=== PATIENT | female | born 1930 | race Caucasian/White ===

== ENCOUNTER 2016-10-28 14:49 | Observation (INO) | payer MEDICARE, BC ==
[~2016-10-28] VITALS: Ht 163.8 cm; Wt 79.8 kg
[~2016-10-28 14:49] MED LIST: ALPRAZOLAM0.5 MG PO; AMLODIPINE10 MG PO; ARICEPT 5MG PO; ASPIRIN E.C. 8181 MG PO; ATARAX 25MG25 MG/TAB; ATARAX 25MG25 MG/TAB PO; BACTRIM DS 8001 TAB PO; BYSTOLIC10 MG PO; CALCIUM 600MG+D1 TAB PO; CALCIUM500 MG PO; CALCIUM600 M1 PO; CELEXA 20MG20 MG/TAB PO; CITRACAL + D CA1 TAB; COLACE 100100 MG/CAP PO; COZAAR 50MG50 MG/TAB PO; CYMBALTA 60MG60 MG PO; DIOVAN320 MG PO; DULCOLAX TAB5 MG PO; EYE PROMISE; FISH OIL1000 MG PO; FLEXERIL 1010 MG/TAB PO; FLUOXETINE10 M1 PO; FOSAMAX 70MG TA70 MG PO; IMDUR 30MG30 MG/TAB PO; LEVOTHYROXIN0.075 MG PO; MACROBID 1100 MG/CAP PO; MELAT3MGTAB PO; MELATONIN5 M1 PO; MELATONIN5 MG; METOPROLOL25 MG PO; MIRALAX PA17 GM/Dose PO; MIRTAZAPINE7.5 MG PO; NAMENDA 10MG TA10 MG PO; NAMENDA5 MG PO; NEURONTIN100 MG/CAP PO; NORVASC 10MG10 MG PO; NORVASC 5MG5 MG/TAB PO; NORVASC2.5 MG PO; PATADAY 2.5 ML2.5 ML OU; PRILOSEC 20MG20 MG PO; REMERON 15M15 MG/TA1 PO; REQUIP 1MG T1 MG/TAB PO; SENNA1 TAB PO; SIMVASTATIN20 MG PO; SYNTHROID0.075 MG/T PO; SYNTHROID0.088 MG/T PO; TOPROL XL 25MG25 MG PO; TOPROL XL 50MG50 MG PO; TRILIPIX45 MG PO; ULTRAM 50MG TAB50 MG PO; VASOTEC 5MG5 MG/TAB PO; XANAX .25M0.25 MG/TA PO; XANAX 0.5MG0.5 MG PO; XANAX1 MG PO; ZOCOR 20MG20 MG PO; ZOLPIDEM10 MG PO
[2016-10-28] MEDS ORDERED: TESSALON P100 MG/CAP PO ×2 (15:29→20:36)
[2016-10-28] MEDS ORDERED: BREO IH ×2 (15:30→20:38)
[2016-10-28] MEDS ORDERED: CATAPRES-TTS 10.1 M1 TD (15:31)
[2016-10-28] MEDS ORDERED: DOXYCYCLINE 50M50 MG PO (15:31)
[2016-10-28] MEDS ORDERED: PROAIR HFA0.09 MG/AC IH (15:33)
[2016-10-28] MEDS ORDERED: PREDNISONE10 MG PO (15:33)
[2016-10-28 16:06] LABS: BASO % 0.1 % (0.0-2.0); EOS % 0.2 % (0-4.0); GRAN # 6.4 (1.4-6.5); GRAN % 71.1 % (42.2-75.2); LYMPH # 1.6 (1.2-3.4); LYMPH % 17.4 % (20.0-51.0); MEAN CELL VOLUME 80 fl (80.0-100.0); MEAN CORPUSCULAR HGB CONC 33 g/dl (33.0-37.0); MEAN PLATELET VOLUME 10.8 fl (7.4-10.4); MONO # 0.8 (0.1-0.6); MONO % 9.2 % (1.7-9.3); PLATELET COUNT 216 K/mm3 (130-400); RED BLOOD COUNT 4.41 M/mm3 (4.10-5.30); REDCELL DISTRIBUTION WIDTH-CV 14.4 % (11.5-14.5)
[2016-10-28 16:07] LABS: HEMATOCRIT 35.3 % (37.0-47.0); HEMOGLOBIN 11.8 g/dl (12.5-16.0); MEAN CORPUSCULAR HEMOGLOBIN 27 pg (27.0-31.0)
[2016-10-28 16:12] LABS: PROTHROMBIN TIME 11.5 SECONDS (9.7-12.8)
[2016-10-28 16:15] LABS: PARTIAL THROMBOPLASTIN TIME 27.6 SECONDS (26.0-37.0)
[2016-10-28 16:21] LABS: ADJUSTED CALCIUM 9.4 mg/dL (8.4-10.2); ALANINE AMINOTRANSFERASE 34 U/L (9-52); ALBUMIN 3.9 gm/dL (3.5-5.0); ALKALINE PHOSPHATASE 45 U/L (50-136); ANION GAP 10 mmol/L (7-16); BILIRUBIN,TOTAL 0.6 mg/dL (0.0-1.0); BLOOD UREA NITROGEN 33 mg/dL (7-17); CALCIUM 9.3 mg/dL (8.4-10.2); CARBON DIOXIDE 25 mmol/L (22-30); CHLORIDE 97 mmol/L (98-107); CREATININE, serum 1.32 mg/dL (0.52-1.25); GLUCOSE 111 mg/dL (74-106); SODIUM 132 mmol/L (137-145)
[2016-10-28 16:33] LABS: B-TYPE NATRIURETIC PEPTIDE 288 pg/mL (0-450); TROPONIN-I < 0.012 ng/mL (0.000-0.034)
[2016-10-28 16:37] LABS: INFLUENZA B NEGATIVE
[2016-10-28 19:50] VITALS: BP 134/59; PULSE 67; TEMP 97.6
[2016-10-28] MEDS ORDERED: IMDUR 60MG60 MG/TAB PO (19:56)
[2016-10-28] MEDS ORDERED: PRIL40 PO (19:58)
[2016-10-28] MEDS ORDERED: ATARAX 25MG25 MG/TAB PO (20:24)
[2016-10-28] MEDS ORDERED: NITROSTAT0.4 MG/TAB SL (20:36)
[2016-10-28] MEDS ORDERED: CEPACOL SORE TH1 LO8 MM (21:49)
[2016-10-29 00:57] VITALS: BP 134/64; PULSE 70; TEMP 98.6
[2016-10-29 04:46] VITALS: BP 160/89; PULSE 86; TEMP 98.1
[2016-10-29 06:19] LABS: PH 7 (5-8); SQUAMOUS EPITHELIAL 0-2 /hpf; URINE APPEARANCE Clear; URINE BACTERIA None Seen /hpf; URINE BILIRUBIN Negative (NEGATIVE); URINE BLOOD Negative (NEGATIVE); URINE COLOR Straw; URINE GLUCOSE Negative (NEGATIVE); URINE KETONE Negative (NEGATIVE); URINE RBC 0-2 /hpf; URINE UROBILINOGEN Negative (NEGATIVE); URINE WBC 0-2 /hpf
[2016-10-29 07:05] LABS: MEAN CELL VOLUME 82 fl (80.0-100.0); MEAN CORPUSCULAR HGB CONC 32 g/dl (33.0-37.0); MEAN PLATELET VOLUME 11.6 fl (7.4-10.4); PLATELET COUNT 220 K/mm3 (130-400); RED BLOOD COUNT 4.43 M/mm3 (4.10-5.30); REDCELL DISTRIBUTION WIDTH-CV 14.6 % (11.5-14.5); WHITE BLOOD COUNT 9.6 K/mm3 (4.8-10.8)
[2016-10-29 07:22] LABS: CALCIUM 8.7 mg/dL (8.4-10.2); CREATININE, serum 1.22 mg/dL (0.52-1.25); POTASSIUM 4.1 mmol/L (3.4-5.0)
[2016-10-29 07:30] LABS: ADD PATHOLOGY DIFF REVIEW NO; HEMATOCRIT 36.3 % (37.0-47.0); HEMOGLOBIN 11.7 g/dl (12.5-16.0); MEAN CORPUSCULAR HEMOGLOBIN 26 pg (27.0-31.0)
[2016-10-29 07:55] VITALS: BP 160/90; PULSE 87; TEMP 98.4
[2016-10-29 08:17] LABS: BAND 7 % (0-10); METAMYELOCYTE 1 % (0-0); NEUTROPHILS 64 % (42.0-75.2); PLATELET ESTIMATE NORMAL (NORMAL); TOTAL CELLS COUNTED 100
[2016-10-29 11:44] VITALS: BP 156/71; PULSE 76
[2016-10-29 15:25] VITALS: BP 162/59; PULSE 76; TEMP 98.8
[2016-10-29 19:47] VITALS: BP 153/68; PULSE 74; TEMP 97.7
[2016-10-30] VITALS (11 sets, daily range): BP systolic 139–189; BP diastolic 67–97; PULSE 63–81; TEMP 97.7–98.3
[2016-10-30] MEDS ORDERED: PREDNISONE20 MG PO (17:56)
== END 2016-10-30 19:35 | disposition home or self-care (01) ==
LOC: COL.ER 14:49 → MEDICAL 17:53
PROVIDERS: Emergency Medicine; Nurse Practitioner Family
DX: R05 Cough (principal); R09.89 Other specified symptoms and signs involving the circulatory and respiratory systems; R06.02 Shortness of breath; R53.83 Other fatigue; I10 Essential (primary) hypertension; E78.5 Hyperlipidemia, unspecified; D64.9 Anemia, unspecified; E03.9 Hypothyroidism, unspecified; Z95.0 Presence of cardiac pacemaker; F41.9 Anxiety disorder, unspecified; J45.909 Unspecified asthma, uncomplicated
CPT/HCPCS: A9502; G0378; G8978-GP; G8979-GP; J0456; J0696; J1644; J2785; J7030; J7050

== ENCOUNTER 2016-11-14 21:54 | Emergency (ER) | payer MEDICARE, BC ==
[~2016-11-14] VITALS: Ht 162.6 cm; Wt 79.5 kg
[~2016-11-14 21:54] MED LIST changes: +BREO IH; +CATAPRES-TTS 10.1 M1 TD; +CEPACOL SORE TH1 LO8 MM; +DOXYCYCLINE 50M50 MG PO; +IMDUR 60MG60 MG/TAB PO; +NITROSTAT0.4 MG/TAB SL; +PREDNISONE10 MG PO; +PREDNISONE20 MG PO; +PRIL40 PO; +PROAIR HFA0.09 MG/AC IH; +TESSALON P100 MG/CAP PO
[2016-11-14 21:59] VITALS: TEMP 97.5
[2016-11-14 23:14] LABS: BASO % 0.2 % (0.0-2.0); EOS # 0.1 (0.0-0.7); EOS % 1.5 % (0-4.0); GRAN # 3.4 (1.4-6.5); GRAN % 64.9 % (42.2-75.2); LYMPH # 1.2 (1.2-3.4); LYMPH % 22.6 % (20.0-51.0); MEAN CELL VOLUME 83 fl (80.0-100.0); MEAN CORPUSCULAR HGB CONC 33 g/dl (33.0-37.0); MEAN PLATELET VOLUME 11.1 fl (7.4-10.4); MONO # 0.6 (0.1-0.6); MONO % 10.4 % (1.7-9.3); PLATELET COUNT 126 K/mm3 (130-400); RED BLOOD COUNT 3.86 M/mm3 (4.10-5.30); WHITE BLOOD COUNT 5.3 K/mm3 (4.8-10.8)
[2016-11-14 23:15] LABS: HEMATOCRIT 32.2 % (37.0-47.0); HEMOGLOBIN 10.5 g/dl (12.5-16.0); MEAN CORPUSCULAR HEMOGLOBIN 27 pg (27.0-31.0)
[2016-11-14 23:23] LABS: ADJUSTED CALCIUM 9.2 mg/dL (8.4-10.2); ALBUMIN 3.4 gm/dL (3.5-5.0); BILIRUBIN,TOTAL 0.6 mg/dL (0.0-1.0); CALCIUM 8.7 mg/dL (8.4-10.2); CREATININE, serum 1.34 mg/dL (0.52-1.25); POTASSIUM 4.2 mmol/L (3.4-5.0); TOTAL PROTEIN 6.1 gm/dL (6.4-8.2)
[2016-11-15] LABS: PH 5 (5-8); SQUAMOUS EPITHELIAL 0-2 /hpf; URINE APPEARANCE Clear; URINE BACTERIA None Seen /hpf; URINE BILIRUBIN Negative (NEGATIVE); URINE BLOOD Negative (NEGATIVE); URINE COLOR Yellow; URINE GLUCOSE Negative (NEGATIVE); URINE KETONE Negative (NEGATIVE); URINE RBC 0-2 /hpf; URINE UROBILINOGEN Negative (NEGATIVE)
[2016-11-15] MEDS ORDERED: MACROBID 1100 MG/CAP PO (00:32)
[2016-11-15 01:05] VITALS: BP 132/66; PULSE 62
== END 2016-11-15 01:05 | disposition home or self-care (01) ==
LOC: COL.ER 21:54
PROVIDERS: Emergency Medicine
DX: E86.0 Dehydration (principal); D64.9 Anemia, unspecified; N39.0 Urinary tract infection, site not specified; I10 Essential (primary) hypertension; F03.90 Unspecified dementia, unspecified severity, without behavioral disturbance, psychotic disturbance, mood disturbance, and anxiety; Z95.0 Presence of cardiac pacemaker
CPT/HCPCS: J3420; J7040

== ENCOUNTER 2017-01-13 13:30 | Outpatient (RCR) | payer MEDICARE, BC | END 2017-01-24 10:25 | disposition home or self-care (01) | LOC: WSPT 13:30 | DX: R26.89 Other abnormalities of gait and mobility (principal); W19.XXXD Unspecified fall, subsequent encounter | CPT/HCPCS: G8978-GP; G8979-GP; G8980-GP ==

== ENCOUNTER 2017-04-26 01:56 | Emergency (ER) | payer MEDICARE, BC ==
[~2017-04-26] VITALS: Ht 162.6 cm; Wt 81.8 kg
[2017-04-26 02:05] VITALS: TEMP 97.8
[2017-04-26] MEDS ORDERED: NORCO 325 MG-51 TAB PO (03:11)
[2017-04-26 03:29] VITALS: BP 184/99; PULSE 64
== END 2017-04-26 03:49 | disposition home or self-care (01) ==
LOC: COL.ER 01:56
DX: S42.252A Displaced fracture of greater tuberosity of left humerus, initial encounter for closed fracture (principal); S80.01XA Contusion of right knee, initial encounter; I10 Essential (primary) hypertension; Z79.82 Long term (current) use of aspirin; W01.0XXA Fall on same level from slipping, tripping and stumbling without subsequent striking against object, initial encounter; Y92.009 Unspecified place in unspecified non-institutional (private) residence as the place of occurrence of the external cause

== ENCOUNTER 2017-05-29 02:27 | Observation (INO) | payer MEDICARE, BC ==
[2017-05-29] VITALS (296 sets, daily range): BP systolic 135–179; BP diastolic 65–87; PULSE 58–95; TEMP 97.8–98.7; O2SAT 89–97
[~2017-05-29] VITALS: Ht 160 cm; Wt 84.0 kg
[~2017-05-29 02:27] MED LIST changes: +NORCO 325 MG-51 TAB PO
[2017-05-29] MEDS ORDERED: VITAMIN D31000 I1 PO (03:18)
[2017-05-29] MEDS ORDERED: TIROSINT88 MC1 PO (03:20)
[2017-05-29 03:21] LABS: BASO % 0.5 % (0.0-2.0); EOS # 0.1 (0.0-0.7); EOS % 1.7 % (0-4.0); GRAN % 66.5 % (42.2-75.2); LYMPH # 1.3 (1.2-3.4); LYMPH % 21.6 % (20.0-51.0); MEAN CELL VOLUME 87 fl (80.0-100.0); MEAN CORPUSCULAR HGB CONC 32 g/dl (33.0-37.0); MEAN PLATELET VOLUME 10.5 fl (7.4-10.4); MONO # 0.6 (0.1-0.6); MONO % 9.2 % (1.7-9.3); PLATELET COUNT 210 K/mm3 (130-400); RED BLOOD COUNT 4.14 M/mm3 (4.10-5.30); REDCELL DISTRIBUTION WIDTH-CV 14.6 % (11.5-14.5)
[2017-05-29 03:23] LABS: HEMOGLOBIN 11.6 g/dl (12.5-16.0); MEAN CORPUSCULAR HEMOGLOBIN 28 pg (27.0-31.0)
[2017-05-29] MEDS ORDERED: REGLAN 5MG T5 MG/TAB PO (03:24)
[2017-05-29 03:27] LABS: PARTIAL THROMBOPLASTIN TIME 31.5 SECONDS (26.0-37.0)
[2017-05-29 03:30] LABS: ADJUSTED CALCIUM 9.1 mg/dL (8.4-10.2); ALANINE AMINOTRANSFERASE 18 U/L (9-52); ALBUMIN 4.2 gm/dL (3.5-5.0); ALKALINE PHOSPHATASE 75 U/L (50-136); ANION GAP 11 mmol/L (7-16); BILIRUBIN,TOTAL 0.6 mg/dL (0.0-1.0); BLOOD UREA NITROGEN 20 mg/dL (7-17); CALCIUM 9.3 mg/dL (8.4-10.2); CARBON DIOXIDE 26 mmol/L (22-30); CHLORIDE 95 mmol/L (98-107); CREATININE, serum 0.98 mg/dL (0.52-1.25); GLUCOSE 121 mg/dL (74-106); LIPASE 139 U/L (23-300); SODIUM 132 mmol/L (137-145); TOTAL PROTEIN 7.4 gm/dL (6.4-8.2)
[2017-05-29 03:42] LABS: B-TYPE NATRIURETIC PEPTIDE 343 pg/mL (0-450); TROPONIN-I < 0.012 ng/mL (0.000-0.034)
[2017-05-29] MEDS ORDERED: ASPIRIN 32325 MG/TAB PO (06:48)
[2017-05-29 07:33] LABS: CHOLESTEROL 150 mg/dL (120-200); HDL CHOLESTEROL 55 mg/dL; LDL CHOLESTEROL 76 mg/dL; MAGNESIUM 1.8 mg/dL (1.6-2.3); TRIGLYCERIDE 95 mg/dL
[2017-05-29 07:46] LABS: TROPONIN-I < 0.012 ng/mL (0.000-0.034)
[2017-05-29 09:04] LABS: PH 6 (5-8); SQUAMOUS EPITHELIAL 0-2 /hpf; URINE APPEARANCE Clear; URINE BACTERIA None Seen /hpf; URINE BILIRUBIN Negative (NEGATIVE); URINE BLOOD Negative (NEGATIVE); URINE COLOR Yellow; URINE GLUCOSE Negative (NEGATIVE); URINE KETONE Negative (NEGATIVE); URINE RBC 0-2 /hpf; URINE UROBILINOGEN Negative (NEGATIVE); URINE WBC 0-2 /hpf
[2017-05-30] VITALS (8 sets, daily range): BP systolic 130–165; BP diastolic 67–81; PULSE 59–61; TEMP 97.7–98.1
[2017-05-30] MEDS ORDERED: NORVASC 10MG10 MG PO (08:18)
== END 2017-05-30 13:18 | disposition home or self-care (01) ==
LOC: COL.ER 02:27 → ICU 04:17 → MEDICAL 17:09
PROVIDERS: Emergency Medicine; Nurse Practitioner Family
DX: I25.110 Atherosclerotic heart disease of native coronary artery with unstable angina pectoris (principal); E03.9 Hypothyroidism, unspecified; F03.90 Unspecified dementia, unspecified severity, without behavioral disturbance, psychotic disturbance, mood disturbance, and anxiety; F32.9 Major depressive disorder, single episode, unspecified; F41.9 Anxiety disorder, unspecified; J45.909 Unspecified asthma, uncomplicated; I12.9 Hypertensive chronic kidney disease with stage 1 through stage 4 chronic kidney disease, or unspecified chronic kidney disease; N18.9 Chronic kidney disease, unspecified; K21.9 Gastro-esophageal reflux disease without esophagitis; M19.90 Unspecified osteoarthritis, unspecified site; M81.0 Age-related osteoporosis without current pathological fracture; E78.5 Hyperlipidemia, unspecified; E87.1 Hypo-osmolality and hyponatremia; D64.9 Anemia, unspecified; Z87.891 Personal history of nicotine dependence; Z85.828 Personal history of other malignant neoplasm of skin; Z86.73 Personal history of transient ischemic attack (TIA), and cerebral infarction without residual deficits; Z95.0 Presence of cardiac pacemaker
CPT/HCPCS: 99239; A9284; C1760; C1894; G0378; J1644; J2250; J3010; J7030; Q9967

== ENCOUNTER → 2017-09-05 | Outpatient (REF) ==
[~2017-09-05] MED LIST changes: +ASPIRIN 32325 MG/TAB PO; +ASPIRIN 81M81 MG/TA2 PO; +BETAPACE 80MG80 MG PO; +COZAAR100 MG PO; +DOXYCYCLINE HY100 MG PO; +FLONASE NASAL S16 GM NS; +FLONASEALLERGY NS; +HEPARIN SOD5000 U/ML SQ; -IMDUR 60MG60 MG/TAB PO; +IPRATROPIUM BROM3 M1 IH; +ISOSORBIDE MON120 MG PO; +LASIX 20MG TABL20 MG PO; +LEADER CLE17 GM/Dose PO; +LEVAQUIN 750MG750 M1 PO; +LOPRESSOR 550 MG/TAB PO; +MELATIN 3 MG-11 TAB PO; +MUCINEX1200 MG PO; +REGLAN 5MG T5 MG/TAB PO; -REQUIP 1MG T1 MG/TAB PO; +REQUIP2 MG PO; +TIROSINT100 MC1 PO; +TYLENOL 325MG325 MG PO; +VITAMIN D 1001000 IU PO; +VITAMIN D31000 I1 PO; +ZYRTEC5 MG PO
[2017-09-05 09:42] LABS: CALCIUM 9.8 mg/dL (8.4-10.2); CREATININE, serum 1.25 mg/dL (0.52-1.25)
== END ==
LOC: ZCOL.LAB 08:25
PROVIDERS: Internal Medicine
DX: E87.1 Hypo-osmolality and hyponatremia (principal)

== ENCOUNTER → 2017-09-07 | Outpatient (REF) ==
[2017-09-07 12:49] LABS: CALCIUM 9.5 mg/dL (8.4-10.2); CREATININE, serum 1.17 mg/dL (0.52-1.25); POTASSIUM 4.6 mmol/L (3.4-5.0)
== END ==
LOC: ZCOL.LAB 12:33
PROVIDERS: Internal Medicine
DX: R39.15 Urgency of urination (principal)

== ENCOUNTER 2017-11-23 17:36 | Inpatient (IN) | payer MEDICARE, BC ==
[~2017-11-23] VITALS: Ht 160 cm; Wt 69.3 kg
[2017-11-23 19:07] LABS: MEAN CELL VOLUME 85 fl (80.0-100.0); MEAN CORPUSCULAR HGB CONC 33 g/dl (33.0-37.0); MEAN PLATELET VOLUME 10.7 fl (7.4-10.4); PLATELET COUNT 350 K/mm3 (130-400); RED BLOOD COUNT 3.55 M/mm3 (4.10-5.30); REDCELL DISTRIBUTION WIDTH-CV 14.8 % (11.5-14.5)
[2017-11-23 19:11] LABS: HEMOGLOBIN 9.9 g/dl (12.5-16.0); MEAN CORPUSCULAR HEMOGLOBIN 28 pg (27.0-31.0)
[2017-11-23] MEDS ORDERED: ASPIRIN 81M81 MG/TA2 PO (19:22)
[2017-11-23] MEDS ORDERED: TOPROL XL 25MG25 MG PO (19:24)
[2017-11-23 19:25] LABS: ALANINE AMINOTRANSFERASE 57 U/L (9-52); ALBUMIN 3.4 gm/dL (3.5-5.0); ALKALINE PHOSPHATASE 70 U/L (50-136); ANION GAP 7 mmol/L (7-16); AST,SGOT 71 U/L (15-37); BILIRUBIN,TOTAL 0.3 mg/dL (0.0-1.0); BLOOD UREA NITROGEN 16 mg/dL (7-17); CARBON DIOXIDE 22 mmol/L (22-30); CHLORIDE 101 mmol/L (98-107); CREATININE, serum 0.91 mg/dL (0.52-1.25); GLUCOSE 210 mg/dL (74-106); SODIUM 131 mmol/L (137-145)
[2017-11-23] MEDS ORDERED: MIRTAZAPINE7.5 MG PO (19:25)
[2017-11-23] MEDS ORDERED: ZOFRAN 4MG T4 MG/TAB PO (19:29)
[2017-11-23] MEDS ORDERED: CATAPRES-TTS 10.1 M1 TD (19:29)
[2017-11-23 19:37] LABS: COLLECTION METHOD CLEAN CATCH
[2017-11-23 19:38] LABS: TROPONIN-I < 0.012 ng/mL (0.000-0.034)
[2017-11-23 19:41] LABS: BAND 10 % (0-10); LYMPHOCYTE 12 % (20.0-51.0); NEUTROPHILS 74 % (42.0-75.2); PLATELET ESTIMATE NORMAL (NORMAL)
[2017-11-23 19:45] LABS: PH 6 (5-8); SQUAMOUS EPITHELIAL None Seen /hpf; URINE APPEARANCE Clear; URINE BACTERIA None Seen /hpf; URINE BILIRUBIN Negative (NEGATIVE); URINE BLOOD Negative (NEGATIVE); URINE COLOR Yellow; URINE GLUCOSE Negative (NEGATIVE); URINE KETONE Negative (NEGATIVE); URINE LEUKOCYTE ESTERASE Negative (NEGATIVE); URINE NITRATE Negative (NEGATIVE); URINE PROTEIN(semi-quant) Negative (NEGATIVE); URINE RBC None Seen /hpf; URINE UROBILINOGEN Negative (NEGATIVE)
[2017-11-23 22:09] VITALS: BP 140/58; PULSE 65; TEMP 98.6
[2017-11-23 22:11] VITALS: BP 140/58; PULSE 68; TEMP 98.6
[2017-11-24 04:35] VITALS: BP 168/86; PULSE 74; TEMP 97.7
[2017-11-24 07:42] LABS: BASO % 0.1 % (0.0-2.0); EOS % 0.1 % (0-4.0); GRAN % 78.7 % (42.2-75.2); LYMPH # 1.3 (1.2-3.4); LYMPH % 11.1 % (20.0-51.0); MEAN CELL VOLUME 86 fl (80.0-100.0); MEAN CORPUSCULAR HGB CONC 32 g/dl (33.0-37.0); MEAN PLATELET VOLUME 10.8 fl (7.4-10.4); PLATELET COUNT 356 K/mm3 (130-400); RED BLOOD COUNT 3.44 M/mm3 (4.10-5.30); REDCELL DISTRIBUTION WIDTH-CV 14.8 % (11.5-14.5)
[2017-11-24 07:43] LABS: HEMATOCRIT 29.4 % (37.0-47.0); HEMOGLOBIN 9.3 g/dl (12.5-16.0); MEAN CORPUSCULAR HEMOGLOBIN 27 pg (27.0-31.0)
[2017-11-24 07:54] VITALS: BP 140/64; PULSE 61; TEMP 98.1
[2017-11-24 07:54] LABS: ALBUMIN 3.3 gm/dL (3.5-5.0); BILIRUBIN,TOTAL 0.2 mg/dL (0.0-1.0); CALCIUM 8.9 mg/dL (8.4-10.2); CREATININE, serum 0.79 mg/dL (0.52-1.25); POTASSIUM 4.2 mmol/L (3.4-5.0); TOTAL PROTEIN 6.7 gm/dL (6.4-8.2)
[2017-11-24 12:18] VITALS: BP 135/45; PULSE 65; TEMP 99.1
[2017-11-24 16:43] VITALS: BP 150/60; PULSE 63; TEMP 99.6
[2017-11-24 21:00] VITALS: BP 150/77; PULSE 66; TEMP 98.4
[2017-11-24 23:25] VITALS: BP 150/79; PULSE 64; TEMP 99.4
[2017-11-25 03:00] VITALS: BP 168/59; PULSE 68; TEMP 100.8
[2017-11-25 07:08] LABS: ALBUMIN 3.2 gm/dL (3.5-5.0); BASO % 0.1 % (0.0-2.0); BILIRUBIN,TOTAL 0.3 mg/dL (0.0-1.0); CALCIUM 8.9 mg/dL (8.4-10.2); CREATININE, serum 0.82 mg/dL (0.52-1.25); EOS % 0.3 % (0-4.0); GRAN # 7.5 (1.4-6.5); GRAN % 74.8 % (42.2-75.2); LYMPH # 1.3 (1.2-3.4); LYMPH % 13.1 % (20.0-51.0); MEAN CELL VOLUME 85 fl (80.0-100.0); MEAN CORPUSCULAR HGB CONC 32 g/dl (33.0-37.0); MEAN PLATELET VOLUME 10.7 fl (7.4-10.4); MONO % 10.3 % (1.7-9.3); PLATELET COUNT 292 K/mm3 (130-400); POTASSIUM 3.1 mmol/L (3.4-5.0); RED BLOOD COUNT 3.44 M/mm3 (4.10-5.30); TOTAL PROTEIN 6.5 gm/dL (6.4-8.2)
[2017-11-25 07:20] LABS: HEMOGLOBIN 9.4 g/dl (12.5-16.0); MEAN CORPUSCULAR HEMOGLOBIN 27 pg (27.0-31.0)
[2017-11-25 07:21] LABS: HEMATOCRIT 29.3 % (37.0-47.0)
[2017-11-25 07:30] VITALS: BP 146/66; PULSE 60; TEMP 98.4
[2017-11-25 11:49] VITALS: BP 149/73; PULSE 61; TEMP 97.7
[2017-11-25 16:55] VITALS: BP 132/51; PULSE 66; TEMP 98.4
[2017-11-25 20:25] VITALS: BP 127/53; PULSE 62; TEMP 98.2
[2017-11-25 23:24] VITALS: BP 176/78; PULSE 65; TEMP 98.8
[2017-11-26] VITALS (7 sets, daily range): BP systolic 121–169; BP diastolic 58–68; PULSE 66–82; TEMP 97.2–99.5
[2017-11-26 06:48] LABS: MEAN CELL VOLUME 84 fl (80.0-100.0); MEAN CORPUSCULAR HGB CONC 33 g/dl (33.0-37.0); MEAN PLATELET VOLUME 10.5 fl (7.4-10.4); PLATELET COUNT 307 K/mm3 (130-400); RED BLOOD COUNT 3.45 M/mm3 (4.10-5.30); REDCELL DISTRIBUTION WIDTH-CV 14.8 % (11.5-14.5)
[2017-11-26 06:52] LABS: HEMOGLOBIN 9.5 g/dl (12.5-16.0); MEAN CORPUSCULAR HEMOGLOBIN 28 pg (27.0-31.0)
[2017-11-26 07:30] LABS: CALCIUM 8.7 mg/dL (8.4-10.2); CREATININE, serum 0.79 mg/dL (0.52-1.25); POTASSIUM 4.2 mmol/L (3.4-5.0)
[2017-11-26 09:17] LABS: BAND 2 % (0-10); EOSINOPHIL 2 % (0-4); HYPOCHROMIA 1+; LYMPHOCYTE 12 % (20.0-51.0); NEUTROPHILS 79 % (42.0-75.2); PLATELET ESTIMATE NORMAL (NORMAL)
[2017-11-26 16:58] LABS: FOLATE (FOLIC ACID) 6.5 ng/mL (7.0-31.4)
[2017-11-27] VITALS (9 sets, daily range): BP systolic 108–174; BP diastolic 40–80; PULSE 63–86; TEMP 97.5–98.9
[2017-11-27 07:23] LABS: CALCIUM 8.7 mg/dL (8.4-10.2); CREATININE, serum 0.76 mg/dL (0.52-1.25); POTASSIUM 4.1 mmol/L (3.4-5.0)
[2017-11-27 07:36] LABS: MEAN CELL VOLUME 84 fl (80.0-100.0); MEAN CORPUSCULAR HGB CONC 32 g/dl (33.0-37.0); MEAN PLATELET VOLUME 10.1 fl (7.4-10.4); PLATELET COUNT 314 K/mm3 (130-400); RED BLOOD COUNT 3.56 M/mm3 (4.10-5.30); REDCELL DISTRIBUTION WIDTH-CV 14.7 % (11.5-14.5)
[2017-11-27 07:39] LABS: HEMATOCRIT 29.9 % (37.0-47.0); HEMOGLOBIN 9.7 g/dl (12.5-16.0); MEAN CORPUSCULAR HEMOGLOBIN 27 pg (27.0-31.0)
[2017-11-27 08:17] LABS: BAND 11 % (0-10); EOSINOPHIL 1 % (0-4); LYMPHOCYTE 21 % (20.0-51.0); METAMYELOCYTE 1 % (0-0); NEUTROPHILS 64 % (42.0-75.2); PLATELET ESTIMATE NORMAL (NORMAL)
[2017-11-28 00:52] VITALS: BP 164/78; PULSE 83; TEMP 98.8
[2017-11-28 03:54] VITALS: BP 146/61; PULSE 59; TEMP 98
[2017-11-28 06:11] LABS: MEAN CELL VOLUME 84 fl (80.0-100.0); MEAN CORPUSCULAR HGB CONC 32 g/dl (33.0-37.0); MEAN PLATELET VOLUME 10.2 fl (7.4-10.4); PLATELET COUNT 340 K/mm3 (130-400); RED BLOOD COUNT 3.79 M/mm3 (4.10-5.30); REDCELL DISTRIBUTION WIDTH-CV 14.9 % (11.5-14.5)
[2017-11-28 06:12] LABS: HEMATOCRIT 31.9 % (37.0-47.0); HEMOGLOBIN 10.1 g/dl (12.5-16.0); MEAN CORPUSCULAR HEMOGLOBIN 27 pg (27.0-31.0)
[2017-11-28 06:23] LABS: CALCIUM 8.7 mg/dL (8.4-10.2); CREATININE, serum 0.75 mg/dL (0.52-1.25); POTASSIUM 3.8 mmol/L (3.4-5.0)
[2017-11-28 07:23] LABS: BAND 3 % (0-10); HYPOCHROMIA 2+; LYMPHOCYTE 20 % (20.0-51.0); METAMYELOCYTE 3 % (0-0); NEUTROPHILS 64 % (42.0-75.2); PLATELET ESTIMATE NORMAL (NORMAL); STOMATOCYTE 1+
[2017-11-28 07:49] VITALS: BP 143/65; PULSE 64; TEMP 97.6
[2017-11-28] MEDS ORDERED: SORE THROAT LOZ1 LO1 MM (10:40)
[2017-11-28] MEDS ORDERED: PROAIR HFA0.09 MG/AC IH (10:55)
[2017-11-28 11:29] VITALS: BP 146/91; PULSE 98; TEMP 97.5
== END 2017-11-28 13:19 | DRG 194 ==
LOC: COL.ER 17:36 → MEDICAL 20:36
PROVIDERS: Emergency Medicine; Internal Medicine; Nurse Practitioner Family; Physician Assistant
DX: J18.9 Pneumonia, unspecified organism (principal); E87.1 Hypo-osmolality and hyponatremia; I16.1 Hypertensive emergency; N18.9 Chronic kidney disease, unspecified; Z66 Do not resuscitate; E87.6 Hypokalemia; I12.9 Hypertensive chronic kidney disease with stage 1 through stage 4 chronic kidney disease, or unspecified chronic kidney disease; I25.10 Atherosclerotic heart disease of native coronary artery without angina pectoris; Z95.0 Presence of cardiac pacemaker; F03.90 Unspecified dementia, unspecified severity, without behavioral disturbance, psychotic disturbance, mood disturbance, and anxiety; Z87.891 Personal history of nicotine dependence; D64.9 Anemia, unspecified; R73.9 Hyperglycemia, unspecified
CPT/HCPCS: 99222-AI; 99231-AI; 99232-AI; 99239; J0360; J0456; J0696; J1650; J2405; J3475; J7030; J7050

== ENCOUNTER 2017-12-07 19:04 | Inpatient (IN) | payer MEDICARE, BC ==
[~2017-12-07] VITALS: Ht 160 cm; Wt 73.1 kg
[~2017-12-07 19:04] MED LIST changes: +SORE THROAT LOZ1 LO1 MM; +ZOFRAN 4MG T4 MG/TAB PO
[2017-12-07 19:52] LABS: BASO % 0.1 % (0.0-2.0); EOS # 0.1 (0.0-0.7); EOS % 0.8 % (0-4.0); GRAN # 5.9 (1.4-6.5); GRAN % 76.5 % (42.2-75.2); LYMPH # 1.2 (1.2-3.4); LYMPH % 15.1 % (20.0-51.0); MEAN CELL VOLUME 85 fl (80.0-100.0); MEAN CORPUSCULAR HGB CONC 32 g/dl (33.0-37.0); MEAN PLATELET VOLUME 10.2 fl (7.4-10.4); MONO # 0.5 (0.1-0.6); PLATELET COUNT 206 K/mm3 (130-400); RED BLOOD COUNT 4.02 M/mm3 (4.10-5.30); REDCELL DISTRIBUTION WIDTH-CV 14.8 % (11.5-14.5)
[2017-12-07 19:54] LABS: HEMATOCRIT 34.3 % (37.0-47.0); MEAN CORPUSCULAR HEMOGLOBIN 27 pg (27.0-31.0)
[2017-12-07 20:18] LABS: BILIRUBIN,TOTAL 0.3 mg/dL (0.0-1.0); CREATININE, serum 0.89 mg/dL (0.52-1.25); POTASSIUM 3.7 mmol/L (3.4-5.0); TOTAL PROTEIN 7.5 gm/dL (6.4-8.2)
[2017-12-07] MEDS ORDERED: BREO IH (21:15)
[2017-12-07 21:56] VITALS: BP 197/85; PULSE 72; TEMP 97.8
[2017-12-07 23:00] LABS: PROTHROMBIN TIME 11.4 SECONDS (9.7-12.8)
[2017-12-08] VITALS (521 sets, daily range): BP systolic 145–169; BP diastolic 75–90; PULSE 73–88; TEMP 98.4–100.3; O2SAT 77–100
[2017-12-08 02:03] LABS: COLLECTION METHOD CLEAN CATCH
[2017-12-08 02:16] LABS: PH 6 (5-8); SQUAMOUS EPITHELIAL None Seen /hpf; URINE APPEARANCE Clear; URINE BACTERIA None Seen /hpf; URINE BILIRUBIN Negative (NEGATIVE); URINE BLOOD 1+ (NEGATIVE); URINE COLOR Yellow; URINE GLUCOSE Negative (NEGATIVE); URINE KETONE Negative (NEGATIVE); URINE LEUKOCYTE ESTERASE Negative (NEGATIVE); URINE NITRATE Negative (NEGATIVE); URINE PROTEIN(semi-quant) Negative (NEGATIVE); URINE UROBILINOGEN Negative (NEGATIVE)
[2017-12-08 07:45] LABS: BASO % 0.2 % (0.0-2.0); EOS # 0.1 (0.0-0.7); EOS % 1.1 % (0-4.0); GRAN # 7.5 (1.4-6.5); GRAN % 82.8 % (42.2-75.2); LYMPH # 0.9 (1.2-3.4); LYMPH % 9.5 % (20.0-51.0); MEAN CELL VOLUME 86 fl (80.0-100.0); MEAN CORPUSCULAR HGB CONC 32 g/dl (33.0-37.0); MEAN PLATELET VOLUME 10.9 fl (7.4-10.4); MONO # 0.6 (0.1-0.6); MONO % 6.1 % (1.7-9.3); RED BLOOD COUNT 3.95 M/mm3 (4.10-5.30); REDCELL DISTRIBUTION WIDTH-CV 14.9 % (11.5-14.5)
[2017-12-08 07:49] LABS: BILIRUBIN,TOTAL 0.5 mg/dL (0.0-1.0); CREATININE, serum 0.72 mg/dL (0.52-1.25); POTASSIUM 3.6 mmol/L (3.4-5.0); TOTAL PROTEIN 7.4 gm/dL (6.4-8.2)
[2017-12-08 07:56] LABS: PRE ALBUMIN 23.4 mg/dL (17.6-36.0)
[2017-12-08 08:16] LABS: HEMOGLOBIN 10.7 g/dl (12.5-16.0); MEAN CORPUSCULAR HEMOGLOBIN 27 pg (27.0-31.0)
[2017-12-08 09:06] LABS: PLATELET COUNT 169 K/mm3 (130-400)
[2017-12-08 15:42] LABS: ARTERIAL BLD GAS O2 SATURATION 93.5 % (92-100); ARTERIAL BLD GAS TCO2 CT 25.9; ARTERIAL BLOOD GAS BASE EXCESS 0.5 (-2-2); ARTERIAL BLOOD GAS HCO3 24.7 meq/L (22-26); ARTERIAL BLOOD GAS PCO2 38.4 mmHg (35-45); ARTERIAL BLOOD GAS PO2 71.5 mmHg (80-100); ARTERIAL BLOOD GAS pH 7.43 (7.35-7.45)
[2017-12-08 21:54] LABS: ARTERIAL BLD GAS O2 SATURATION 98.6 % (92-100); ARTERIAL BLOOD GAS BASE EXCESS -0.4 (-2-2); ARTERIAL BLOOD GAS HCO3 25.6 meq/L (22-26); ARTERIAL BLOOD GAS PCO2 47.7 mmHg (35-45); ARTERIAL BLOOD GAS pH 7.35 (7.35-7.45)
[2017-12-08 21:56] LABS: ARTERIAL BLOOD GAS PO2 180.6 mmHg (80-100)
[2017-12-09] VITALS (1423 sets, daily range): BP systolic 105–115; BP diastolic 51–61; PULSE 62–68; TEMP 98.2–99; O2SAT 73–100
[2017-12-09 05:26] LABS: ARTERIAL BLD GAS O2 SATURATION 96.3 % (92-100); ARTERIAL BLD GAS TCO2 CT 24.7; ARTERIAL BLOOD GAS BASE EXCESS -1.3 (-2-2); ARTERIAL BLOOD GAS HCO3 23.5 meq/L (22-26); ARTERIAL BLOOD GAS PCO2 39.7 mmHg (35-45); ARTERIAL BLOOD GAS PO2 91.9 mmHg (80-100); ARTERIAL BLOOD GAS pH 7.39 (7.35-7.45)
[2017-12-09 05:32] LABS: BASO % 0.2 % (0.0-2.0); EOS # 0.1 (0.0-0.7); GRAN # 8.3 (1.4-6.5); GRAN % 81.1 % (42.2-75.2); LYMPH # 0.9 (1.2-3.4); LYMPH % 8.9 % (20.0-51.0); MEAN CELL VOLUME 87 fl (80.0-100.0); MEAN CORPUSCULAR HGB CONC 31 g/dl (33.0-37.0); MEAN PLATELET VOLUME 10.6 fl (7.4-10.4); MONO # 0.9 (0.1-0.6); MONO % 8.4 % (1.7-9.3); PLATELET COUNT 162 K/mm3 (130-400); RED BLOOD COUNT 3.35 M/mm3 (4.10-5.30); REDCELL DISTRIBUTION WIDTH-CV 15.2 % (11.5-14.5)
[2017-12-09 05:33] LABS: HEMATOCRIT 29.1 % (37.0-47.0); MEAN CORPUSCULAR HEMOGLOBIN 27 pg (27.0-31.0)
[2017-12-09 05:42] LABS: ALBUMIN 3.2 gm/dL (3.5-5.0); BILIRUBIN,TOTAL 0.5 mg/dL (0.0-1.0); CALCIUM 8.2 mg/dL (8.4-10.2); CREATININE, serum 1.12 mg/dL (0.52-1.25); MAGNESIUM 1.6 mg/dL (1.6-2.3); POTASSIUM 3.9 mmol/L (3.4-5.0); TOTAL PROTEIN 6.3 gm/dL (6.4-8.2)
[2017-12-10] VITALS (1137 sets, daily range): BP systolic 109–139; BP diastolic 52–65; PULSE 63–73; TEMP 97.7–99.1; O2SAT 92–100
[2017-12-10 05:34] LABS: EOS # 0.1 (0.0-0.7); EOS % 0.7 % (0-4.0); GRAN # 5.7 (1.4-6.5); LYMPH # 0.7 (1.2-3.4); LYMPH % 10.2 % (20.0-51.0); MEAN CELL VOLUME 89 fl (80.0-100.0); MEAN CORPUSCULAR HGB CONC 31 g/dl (33.0-37.0); MEAN PLATELET VOLUME 11.2 fl (7.4-10.4); MONO # 0.7 (0.1-0.6); MONO % 9.8 % (1.7-9.3); PLATELET COUNT 131 K/mm3 (130-400); REDCELL DISTRIBUTION WIDTH-CV 15.5 % (11.5-14.5)
[2017-12-10 05:36] LABS: HEMATOCRIT 24.8 % (37.0-47.0); HEMOGLOBIN 7.6 g/dl (12.5-16.0); MEAN CORPUSCULAR HEMOGLOBIN 27 pg (27.0-31.0)
[2017-12-10 05:47] LABS: ALBUMIN 2.7 gm/dL (3.5-5.0); BILIRUBIN,TOTAL 0.2 mg/dL (0.0-1.0); CALCIUM 7.6 mg/dL (8.4-10.2); CREATININE, serum 1.09 mg/dL (0.52-1.25); MAGNESIUM 2.2 mg/dL (1.6-2.3); PHOSPHOROUS 3.9 mg/dL (2.5-4.5); POTASSIUM 3.5 mmol/L (3.4-5.0); TOTAL PROTEIN 5.7 gm/dL (6.4-8.2)
[2017-12-10 08:15] LABS: ARTERIAL BLD GAS TCO2 CT 22.3; ARTERIAL BLOOD GAS BASE EXCESS -3.9 (-2-2); ARTERIAL BLOOD GAS HCO3 21.1 meq/L (22-26); ARTERIAL BLOOD GAS PCO2 38.2 mmHg (35-45); ARTERIAL BLOOD GAS PO2 93.9 mmHg (80-100); ARTERIAL BLOOD GAS pH 7.36 (7.35-7.45)
[2017-12-10 14:13] LABS: HEMATOCRIT 23.4 % (37.0-47.0); HEMOGLOBIN 7.1 g/dl (12.5-16.0)
[2017-12-10 15:38] LABS: ARTERIAL BLD GAS O2 SATURATION 93.7 % (92-100); ARTERIAL BLD GAS TCO2 CT 20.5; ARTERIAL BLOOD GAS BASE EXCESS -5.7 (-2-2); ARTERIAL BLOOD GAS HCO3 19.4 meq/L (22-26); ARTERIAL BLOOD GAS PCO2 36.3 mmHg (35-45); ARTERIAL BLOOD GAS PO2 78.9 mmHg (80-100); ARTERIAL BLOOD GAS pH 7.35 (7.35-7.45)
[2017-12-11] VITALS (1019 sets, daily range): BP systolic 129–169; BP diastolic 59–86; PULSE 60–69; TEMP 97.6–99; O2SAT 71–100
[2017-12-11 04:41] LABS: ARTERIAL BLD GAS O2 SATURATION 92.4 % (92-100); ARTERIAL BLD GAS TCO2 CT 22.3; ARTERIAL BLOOD GAS BASE EXCESS -3.9 (-2-2); ARTERIAL BLOOD GAS HCO3 21.2 meq/L (22-26); ARTERIAL BLOOD GAS PCO2 38.3 mmHg (35-45); ARTERIAL BLOOD GAS PO2 70.3 mmHg (80-100); ARTERIAL BLOOD GAS pH 7.36 (7.35-7.45)
[2017-12-11 05:40] LABS: EOS # 0.1 (0.0-0.7); EOS % 1.1 % (0-4.0); GRAN # 4.1 (1.4-6.5); GRAN % 73.4 % (42.2-75.2); LYMPH # 0.7 (1.2-3.4); LYMPH % 13.4 % (20.0-51.0); MEAN CELL VOLUME 90 fl (80.0-100.0); MEAN CORPUSCULAR HGB CONC 30 g/dl (33.0-37.0); MEAN PLATELET VOLUME 11.9 fl (7.4-10.4); MONO # 0.6 (0.1-0.6); MONO % 11.6 % (1.7-9.3); PLATELET COUNT 129 K/mm3 (130-400); RED BLOOD COUNT 2.49 M/mm3 (4.10-5.30); REDCELL DISTRIBUTION WIDTH-CV 15.4 % (11.5-14.5)
[2017-12-11 05:54] LABS: ALBUMIN 2.2 gm/dL (3.5-5.0); BILIRUBIN,TOTAL 0.1 mg/dL (0.0-1.0); CALCIUM 6.8 mg/dL (8.4-10.2); CREATININE, serum 0.76 mg/dL (0.52-1.25); PHOSPHOROUS 2.3 mg/dL (2.5-4.5); POTASSIUM 3.8 mmol/L (3.4-5.0); TOTAL PROTEIN 4.9 gm/dL (6.4-8.2)
[2017-12-11 05:58] LABS: HEMATOCRIT 22.4 % (37.0-47.0); HEMOGLOBIN 6.8 g/dl (12.5-16.0); MEAN CORPUSCULAR HEMOGLOBIN 27 pg (27.0-31.0)
[2017-12-11 20:13] LABS: HEMATOCRIT 24.1 % (37.0-47.0); HEMOGLOBIN 7.4 g/dl (12.5-16.0)
[2017-12-12] VITALS (1401 sets, daily range): BP systolic 120–195; BP diastolic 57–96; PULSE 60–99; TEMP 98–99.1; O2SAT 77–100
[2017-12-12 05:15] LABS: ARTERIAL BLD GAS O2 SATURATION 94.9 % (92-100); ARTERIAL BLD GAS TCO2 CT 26.2; ARTERIAL BLOOD GAS HCO3 25.1 meq/L (22-26); ARTERIAL BLOOD GAS PCO2 37.3 mmHg (35-45); ARTERIAL BLOOD GAS PO2 78.7 mmHg (80-100); ARTERIAL BLOOD GAS pH 7.45 (7.35-7.45)
[2017-12-12 05:34] LABS: MEAN CELL VOLUME 90 fl (80.0-100.0); MEAN CORPUSCULAR HGB CONC 31 g/dl (33.0-37.0); MEAN PLATELET VOLUME 11.9 fl (7.4-10.4); PLATELET COUNT 142 K/mm3 (130-400); RED BLOOD COUNT 2.48 M/mm3 (4.10-5.30); REDCELL DISTRIBUTION WIDTH-CV 15.5 % (11.5-14.5)
[2017-12-12 05:37] LABS: HEMATOCRIT 22.2 % (37.0-47.0); HEMOGLOBIN 6.8 g/dl (12.5-16.0); MEAN CORPUSCULAR HEMOGLOBIN 27 pg (27.0-31.0)
[2017-12-12 05:48] LABS: ALBUMIN 2.5 gm/dL (3.5-5.0); BILIRUBIN,TOTAL 0.2 mg/dL (0.0-1.0); CALCIUM 7.9 mg/dL (8.4-10.2); CREATININE, serum 0.75 mg/dL (0.52-1.25); MAGNESIUM 1.9 mg/dL (1.6-2.3); POTASSIUM 3.8 mmol/L (3.4-5.0); TOTAL PROTEIN 5.4 gm/dL (6.4-8.2)
[2017-12-12 06:09] LABS: EOSINOPHIL 7 % (0-4); LYMPHOCYTE 13 % (20.0-51.0); MYELOCYTE 2 % (0-0); NEUTROPHILS 76 % (42.0-75.2)
[2017-12-12 06:10] LABS: NUCLEATED RED BLOOD CELL 1 (0-6); PLATELET ESTIMATE NORMAL (NORMAL)
[2017-12-12 06:11] LABS: ANISOCYTOSIS 1+; HYPOCHROMIA 2+; MICROCYTOSIS 1+; POLYCHROMASIA 1+
[2017-12-12 13:01] LABS: HEMATOCRIT 32.1 % (37.0-47.0); HEMOGLOBIN 10.3 g/dl (12.5-16.0)
[2017-12-12 21:12] LABS: HEMATOCRIT 33.6 % (37.0-47.0)
[2017-12-13] VITALS (1232 sets, daily range): BP systolic 133–184; BP diastolic 74–93; PULSE 21–119; TEMP 98–100.5; O2SAT 83–100
[2017-12-13 07:44] LABS: MEAN CORPUSCULAR HGB CONC 33 g/dl (33.0-37.0); MEAN PLATELET VOLUME 11.7 fl (7.4-10.4); PLATELET COUNT 229 K/mm3 (130-400); REDCELL DISTRIBUTION WIDTH-CV 15.8 % (11.5-14.5); RETIC % 2.5 % (0.5-3.52)
[2017-12-13 07:45] LABS: HEMATOCRIT 33.5 % (37.0-47.0); MEAN CELL VOLUME 84 fl (80.0-100.0); MEAN CORPUSCULAR HEMOGLOBIN 28 pg (27.0-31.0)
[2017-12-13 07:48] LABS: ALBUMIN 3.2 gm/dL (3.5-5.0); BILIRUBIN,TOTAL 1.1 mg/dL (0.0-1.0); CALCIUM 8.5 mg/dL (8.4-10.2); CREATININE, serum 0.6 mg/dL (0.52-1.25); MAGNESIUM 1.6 mg/dL (1.6-2.3); POTASSIUM 3.1 mmol/L (3.4-5.0); TOTAL PROTEIN 6.7 gm/dL (6.4-8.2)
[2017-12-13 09:53] LABS: BAND 6 % (0-10); EOSINOPHIL 2 % (0-4); LYMPHOCYTE 11 % (20.0-51.0); METAMYELOCYTE 1 % (0-0); NEUTROPHILS 71 % (42.0-75.2); PLATELET ESTIMATE NORMAL (NORMAL)
[2017-12-13 09:54] LABS: HYPOCHROMIA 1+; POLYCHROMASIA 2+
[2017-12-13 14:05] LABS: HEMATOCRIT 34.9 % (37.0-47.0); HEMOGLOBIN 11.4 g/dl (12.5-16.0)
[2017-12-14] VITALS (216 sets, daily range): O2SAT 87–99
[2017-12-14] MEDS ORDERED: MORP4 IV\\IM (11:48)
[2017-12-14] MEDS ORDERED: ATIVAN 2MG/ML2 MG/ML IV\\IM (11:49)
[2017-12-14] MEDS ORDERED: ROXANOL 20MG20 MG/ML SL (15:22)
[2017-12-14] MEDS ORDERED: ATIVAN 0.50.5 MG/TAB PO (15:23)
== END 2017-12-14 15:50 | disposition hospice, inpatient (51) | DRG 535 ==
LOC: COL.ER 19:04 → SURG 20:30 → ICU 20:30 → SURG 12-08 13:48 → ICU 12-08 14:10
PROVIDERS: Family Medicine; Internal Medicine; Internal Medicine Pulmonary Disease; Nurse Practitioner Family
PROC: 0BH17EZ Insertion of Endotracheal Airway into Trachea, Via Natural or Artificial Opening (ICD-10-PCS; principal; 2017-12-08)
PROC: 5A1945Z Respiratory Ventilation, 24-96 Consecutive Hours (ICD-10-PCS; 2017-12-08)
DX: S72.002A Fracture of unspecified part of neck of left femur, initial encounter for closed fracture (principal); J96.01 Acute respiratory failure with hypoxia; J69.0 Pneumonitis due to inhalation of food and vomit; I26.99 Other pulmonary embolism without acute cor pulmonale; I63.9 Cerebral infarction, unspecified; G81.94 Hemiplegia, unspecified affecting left nondominant side; Z66 Do not resuscitate; Z51.5 Encounter for palliative care; W18.30XA Fall on same level, unspecified, initial encounter; I48.91 Unspecified atrial fibrillation; I25.10 Atherosclerotic heart disease of native coronary artery without angina pectoris; F03.90 Unspecified dementia, unspecified severity, without behavioral disturbance, psychotic disturbance, mood disturbance, and anxiety; I12.9 Hypertensive chronic kidney disease with stage 1 through stage 4 chronic kidney disease, or unspecified chronic kidney disease; N18.9 Chronic kidney disease, unspecified; Z95.0 Presence of cardiac pacemaker; Z87.891 Personal history of nicotine dependence; D64.9 Anemia, unspecified
CPT/HCPCS: 99223-AI; 99232-AI; 99233-AI; A9284; C1751; C1894; C9113; J0330; J0360; J0690; J1100; J1170; J1644; J1650; J1815; J1940; J2060; J2270; J2405; J2543; J2550; J2704; J3010; J3475; J3480; J7030; J7040; J7050; J7060; J7120; P9016; Q9967